=== PATIENT | female | born 2000 | race Caucasian/White ===

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

== ENCOUNTER 2022-01-04 15:15 | Emergency (ER) | payer MEDICAID, SELFPAY ==
[2022-01-04] VITALS (7 sets, daily range): BP systolic 110–121; BP diastolic 73–81; PULSE 63–89; RESP 15–18; TEMP 36.3; O2SAT 98–100; BMI 16.1
--- NOTE | 2022-01-04 16:01 | EX.ED.VIS.PS ---
HPI HPI - Psych History of Present Illness Chief Complaint: Suicidal Narrative Narrative: 20-year-old female presenting with suicidal ideation. He has a history of bipolar disorder. She is on Prozac 10 mg p.o. daily and states she ingested hydralzine which is prescribed by her primary physician. She states she cannot remember her name. She states this is a recurring prescription and she gets it every 30 days. She estimates she refilled this about 2 weeks ago and probably had about 15 pills of this prior to coming. She expresses that she had nausea and vomiting with retching and saw some blood tingeing in he saliva. She denies blood clots or coffee-ground emesis. She expresses that she has a mild epigastric pain as well. When I asked her what stressed her to this point she states I do not know, everything. She is very guarded with her answers. She states he did not ingest anything else. She is not on any blood thinners. PFSH PFS Medical History Anxiety Depression Eating disorder Home Medications NK 10/11/21 [History Last Taken Unknown] Allergy/AdvReac Type Severity Reaction Status Date / Time No Known Allergies Allergy Verified 01/04/22 15:16 Social History Smoking Status: Never smoker ROS ROS ED Constitutional Constitutional ED: Denies chills or fever(s) Eyes Eyes: Denies change in vision ENT ENT ED: Denies rhinorrhea or sore throat Cardiovascular Cardiovascular: Denies chest pain or palpitations Respiratory/Chest Respiratory/Chest: Denies cough or dyspnea Gastrointestinal Gastrointestinal: Reports abdominal pain, nausea, vomiting and other Details: Blood in saliva after vomiting. Genitourinary Genitourinary ED: Denies dysuria or hematuria Musculoskeletal Musculoskeletal: Denies arthralgias Integumentary Denies abscess or Abrasions Neurologic Neurologic: Denies headache(s) or paresthesias Psychiatric Psychiatric: Denies anxiety or depression EXAM Physical Exam Const Vital Signs: 01/04/22 15:16 01/04/22 17:43 01/04/22 18:38 Temperature 97.4 F L Temperature Source Temporal Pulse Rate 89 63 Respiratory Rate 16 18 18 Blood Pressure 121/81 H 110/73 Blood Pressure Mean 94 85 Pulse Ox 98 100 Oxygen Delivery Method Room Air Room Air Room Air Positive well nourished General Appearance ED: irritable and NAD; Negative for pallor HEENT Reports moist mucous membranes normocephalic and atraumatic Eyes PERRL and EOMs intact bilaterally General Eye ED: Negative for pale conjunctiva or scleral icterus Neck no lymphadenopathy Resp normal respiratory effort and clear to auscultation bilaterally GI non-distended and no masses Auscultation: normoactive bowel sounds Palpation: soft Back/Spine no CVA tenderness Neuro oriented x3 and CN's II-XII intact bilaterally Psych Appearance: grossly normal Attitude: calm and guarded Mood & Affect: irritable and flat affect Thought Content: suicidality, No homicidality and No hallucination(s) Attention / Concentration: attention grossly intact Memory / Cognition: memory grossly intact Insight: poor Judgement: poor Skin General Skin Exam: Negative for jaundice or pallor Lesions: no lesions MDM MDM MDM Narrative Medical decision making narrative: Patient states she ingested hydralazine which she is prescribed for anxiety. I suspect this is hydralazine. While attempting to find her medication list on [facility] it appears that she was recently seen for supervision of first trimester . The patient does not admit this to me. After admitting that she ingested the medication to hurt herself/kill herself I did developmental training counselor her that she will need to speak with the social media assistant and I would have to she is speak to poison control. She denies coingestions. Her physical exam is unremarkable. Suicide precautions in place. recycle worker contacted to see her. It was unable to be confirmed if she took hydroxyzine or not. Patient did tell the social media assistant that she did feel suicidal and did take a medication to hurt herself. At this point the patient will be pink slipped. CBC shows a normal white blood cell count at 16.2. Hemoglobin stable at 15.4. Platelets normal at 281. Serum hCG negative. EtOH less than 3. Urine drug screen negative. Renal function and electrolytes are normal. Salicylates within normal limits. Acetaminophen level is 54.5. Patient admits to ingestion at 2 PM and this is 2 hours and 35 minutes later. She does report vomiting but did not vomit any medicine. I spoke to poison control regarding this and they recommended redraw now. If her serum acetaminophen level is greater than 116 then she will need to be admitted for N-acetylcysteine treatment. If it is less she can be medically cleared. Repeat acetaminophen level was 34 therefore she is medically cleared. Patient was accepted to [facility]. She will be transported when a bed is available and transport arrives. Impression: 1. Nausea/vomiting 2. Suicidal ideation 3. Drug ingestion 4. Elevated acetaminophen level without overdose Lab Data Labs: Laboratory Results - last 24 hr 01/04/22 01/04/22 01/04/22 16:35 16:35 16:35 WBC 6.2 RBC 5.36 Hgb 15.4 H Hct 45.1 MCV 84.1 MCH 28.7 MCHC 34.1 RDW Std Deviation 39.2 RDW Coeff of Cely 12.8 Plt Count 281 MPV 10.6 Immature Gran % (Auto) 0.200 Neut % (Auto) 53.8 Lymph % (Auto) 35.7 [place] % (Auto) 8.1 Eos % (Auto) 1.1 Baso % (Auto) 1.1 H Absolute Neuts (auto) 3.3 Absolute Lymphs (auto) 2.20 Nucleated RBC % 0 Sodium Potassium Chloride Carbon Dioxide Anion Gap BUN Creatinine Estim Creat Clear Calc Est GFR (MDRD) Af Amer Est GFR (MDRD) Non-Af BUN/Creatinine Ratio Glucose Calcium Total Bilirubin AST ALT Alkaline Phosphatase Total Protein Albumin Globulin Albumin/Globulin Ratio Serum , Qual NEGATIVE Salicylates Urine Opiates Screen Urine Methadone Screen Acetaminophen Ur Barbiturates Screen Ur Phencyclidine Scrn Ur Amphetamines Screen MDMA (Ecstasy) Screen U Benzodiazepines Scrn Urine Cocaine Screen U Cannabinoids Screen Ur Drug Screen Comment Ethyl Alcohol < 3.0 01/04/22 01/04/22 01/04/22 16:35 16:35 16:57 WBC RBC Hgb Hct MCV MCH MCHC RDW Std Deviation RDW Coeff of Cely Plt Count MPV Immature Gran % (Auto) Neut % (Auto) Lymph % (Auto) [place] % (Auto) Eos % (Auto) Baso % (Auto) Absolute Neuts (auto) Absolute Lymphs (auto) Nucleated RBC % Sodium 140 Potassium 3.5 Chloride 105 Carbon Dioxide 28.0 Anion Gap 7 BUN 7 Creatinine 0.85 Estim Creat Clear Calc 76.23 Est GFR (MDRD) Af Amer 111 Est GFR (MDRD) Non-Af 92 BUN/Creatinine Ratio 8.3 L Glucose 97 Calcium 10.1 Total Bilirubin 0.60 AST 9 L ALT 17 Alkaline Phosphatase 78 Total Protein 8.9 H Albumin 4.9 Globulin 4.0 Albumin/Globulin Ratio 1.2 Serum , Qual Salicylates < 1.7 L Urine Opiates Screen NEGATIVE Urine Methadone Screen NEGATIVE Acetaminophen 54.5 H* Ur Barbiturates Screen NEGATIVE Ur Phencyclidine Scrn NEGATIVE Ur Amphetamines Screen NEGATIVE MDMA (Ecstasy) Screen NEGATIVE U Benzodiazepines Scrn NEGATIVE Urine Cocaine Screen NEGATIVE U Cannabinoids Screen NEGATIVE Ur Drug Screen Comment Ethyl Alcohol 01/04/22 19:30 WBC RBC Hgb Hct MCV MCH MCHC RDW Std Deviation RDW Coeff of Cely Plt Count MPV Immature Gran % (Auto) Neut % (Auto) Lymph % (Auto) [place] % (Auto) Eos % (Auto) Baso % (Auto) Absolute Neuts (auto) Absolute Lymphs (auto) Nucleated RBC % Sodium Potassium Chloride Carbon Dioxide Anion Gap BUN Creatinine Estim Creat Clear Calc Est GFR (MDRD) Af Amer Est GFR (MDRD) Non-Af BUN/Creatinine Ratio Glucose Calcium Total Bilirubin AST ALT Alkaline Phosphatase Total Protein Albumin Globulin Albumin/Globulin Ratio Serum , Qual Salicylates Urine Opiates Screen Urine Methadone Screen Acetaminophen 34.0 H Ur Barbiturates Screen Ur Phencyclidine Scrn Ur Amphetamines Screen MDMA (Ecstasy) Screen U Benzodiazepines Scrn Urine Cocaine Screen U Cannabinoids Screen Ur Drug Screen Comment Ethyl Alcohol Discharge Plan Triage Chief Complaint: Suicidal ED Provider: Armin Gaspar Dx/Rx/DC Orders Prescriptions: No Action NK Primary Care Provider: Care Physician,No Primary Referrals: Care Physician,No Primary [Primary Care Provider] -
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
[2022-01-04 16:53] LABS: Absolute Neutrophil Count 3.3 X10^3/uL (2.0-7.7); Basophil# 0.07 X10^3/uL; Basophil% 1.1 % (0-1); Eosinophil# 0.07 X10^3/uL; Eosinophils% 1.1 % (0-5); Hematocrit 45.1 % (37-47); Hemoglobin 15.4 g/dL (12.0-15.0); Lymphocyte % 35.7 % (19-41); Mean Corp Hgb Conc 34.1 g/dL (32-36); Mean Corpuscular Hgb 28.7 pg (27.0-32.0); Mean Corpuscular Volume 84.1 fL (81-99); Mean Platelet Vol. 10.6 fl (6.2-12.0); Monocyte% 8.1 % (0-10); NRBC Flagged by Analyzer 0 % (0-5); Neutrophil # 3.32 X10^3/uL (2.7-7.7); Neutrophil % 53.8 % (47-70); Platelet Count 281 K/mm3 (150-450); RBC Distribution Width CV 12.8 % (11.6-14.6); RBC Distribution Width SD 39.2 fl (35.1-43.9); Red Blood Count 5.36 M/mm3 (4.2-5.4); White Blood Count 6.2 K/mm3 (4.4-11.0)
--- NOTE | 2022-01-04 17:08 | CM.ED ---
Miguel FALLON stated it was GRANDFATHER who voiced that patient had made SI statements. Grandmother had stated that father has multiple psych issues requiring multiple psych placements. [facility]
[2022-01-04 17:11] LABS: ALB/GLOB Ratio 1.2 RATIO (0.9-2.4); AST(SGOT) 9 U/L (15-37); Alanine Aminotransfer ALT/SGPT 17 U/L (13-56); Albumin, Serum 4.9 g/dL (3.2-5.0); Alkaline Phosphatase 78 U/L (45-117); Anion Gap 7 (5-15); BUN 7 mg/dL (7-18); BUN/Creat Ratio 8.3 RATIO (10-20); Calcium,Total 10.1 mg/dL (8.5-10.1); Chloride 105 mmol/L (98-107); Creatinine, Serum 0.85 mg/dL (0.55-1.02); EST Glomerular Filtration Rate 92 mL/min (>60); Est Glom Filt Rate - Afr Amer 111 mL/min (>60); Estimated Creatinine Clearance 76.23 ml/min; Glucose 97 mg/dL (74-106); Potassium 3.5 mmol/L (3.5-5.1); Protein, Total 8.9 g/dL (6.4-8.2); Sodium Level 140 mmol/L (136-145)
--- NOTE | 2022-01-04 17:18 | EKG12_ITS ---
Test Reason : [facility] Blood Pressure : / mmHG Vent. Rate : 074 BPM Atrial Rate : 074 BPM P-R Int : 146 ms QRS Dur : 082 ms QT Int : 364 ms P-R-T Axes : 069 100 051 degrees QTc Int : 404 ms Normal sinus rhythm with sinus arrhythmia Rightward axis Borderline ECG Confirmed by ROBER JANSEN, TERESA ([id number]), non linear editor MARY SILVA ([id number]) on 01/06/2022 9:28:02 AM Referred By: JOSE Confirmed By:TERESA RICHTER MD
[2022-01-04 17:20] LABS: Amphetamine Urine VISTA NEGATIVE (<1000 ng/mL); Barbiturate Urine VISTA NEGATIVE (< 200 ng/mL); Benzodiazepine Urine VISTA NEGATIVE (< 200 ng/mL); Cocaine Urine VISTA NEGATIVE (< 300 ng/mL); Ecstacy Urine VISTA NEGATIVE (< 500 ng/mL); Methadone Urine VISTA NEGATIVE (< 300 ng/mL); PCP Urine VISTA NEGATIVE (< 25 ng/mL); THC Urine VISTA NEGATIVE (< 50 ng/mL); Vista UDS pH Range 7
--- NOTE | 2022-01-04 17:36 | NURSING ---
NO OLD EKGS
--- NOTE | 2022-01-04 18:08 | NURSING ---
ACCEPTED AT [facility]
[2022-01-04 18:10] LABS: Alcohol, Blood (Medical)-Serum < 3.0 mg/dL
--- NOTE | 2022-01-04 18:28 | CM.ED ---
SW went into patient's room and spoke to patient. She said that she had thought about SI and taken the pills but then I threw them up. SW discussed the seriousness of the situation. Patient voiced concern about who is going to care for her dog and how her pills are being paid. SW attempted to problem solve however, patient is resistive and said I don't want to talk to you anymore. BILLY received call from Ryann at [facility]. Patient was accepted by MD [facility]. Rn to Rn is [phone]. Room number to be decided at admission. BILLY updated charge lpn, RN and MD that patient accepted at [facility]. bere Domínguez call report. BILLY updated patient about acceptance at [facility]. Patient inquired about clothes and SW indicated that the facility will provide her with whatever clothing she needs. Per Catrachita, ETA for patient is 3 hours. BILLY called Ryann at [facility] and advised that patient will leave at 9:30pm Plan: [facility]
[2022-01-04 18:59] LABS: Internal QC Validated? YES +Cl - CLEAR BKGD; Pregnancy, Serum, hCG Quali. NEGATIVE Negative
[2022-01-04 19:15] LABS: Acetaminophen (Tylenol) Level 54.5 ug/mL (10.0-30.0); Salicylate < 1.7 mg/dL (2.8-20.0)
--- NOTE | 2022-01-04 23:13 | ED.RN ---
This RN was sitting with patient, patient asked to go to [employer] machine to get a snack. This RN states that since patient has been on good behavior and since the transport has been delayed twice that this RN will walk with patient to the vending machine. Patient states her phone and is now unable to use her phone to pay. This RN and patient started walking back to room 4, as this RN badges the ED doors open patient runs behind this RN and out the main ED doors. HRO runs after patient, Juan MUJICA notified and are out looking for patient. Dr Gaspar notified. [facility] notified as well, they state if patient is not found by midnight that there will no longer be anyone to admit her at their facility tonight and patient would have to arrive after 0730 in the am. Heaven from [facility] also states it is ok to medicate patient before she departs our ED.
--- NOTE | 2022-01-04 23:44 | NURSING ---
I CALLED PHYSICIANS AT [phone] FOR RM 2 RIDE, AND THEY PUSHED ETA FOR THIS PATIENT AN EXTRA HR SO FROM 2129 TO 2229. I CALLED AT 2144 FOR UPDATED ETA. THEY WERE GETTING A PATIENT OFF THE FLOOR, THEN COMING FOR RM2 ,THEN RM 4. AROUND 2309 I CALLED BACK, TO GET UPDATED ETA FOR RM 4. THEY GAVE ME 20 MORE MINUTES.
--- NOTE | 2022-01-06 12:45 | CM.ED ---
Social Work Telephone call from Officer Flory. Officer Flory reports to have got in contact with patient. Patient was able to get appointment with local crisis team for assessment and connection with services. Officer Flory reports that patient is doing well. This social media marketer thanked Officer Flory for the follow up phone call/updated on patient status due to patient eloping from the ED. Erick NAVA, RAMANA
== END 2022-01-04 23:15 | disposition left against medical advice (07) ==
PROVIDERS: Emergency Provider Student in an Organized Health Care Education/Training Program; Visit Provider Student in an Organized Health Care Education/Training Program
DX: R11.2 Nausea with vomiting, unspecified (principal); F31.9 Bipolar disorder, unspecified; R45.851 Suicidal ideations
CPT/HCPCS: 80053; 80307; 80329; 82077; 84703; 85025; 87811; 93005; 99284; G0480

== ENCOUNTER 2022-06-26 23:06 | Emergency (ER) | payer MEDICAID, SELFPAY ==
[2022-06-26 23:07] VITALS: BP 126/74; PULSE 73; RESP 16; TEMP 36.3; O2SAT 100; BMI 20.9
--- NOTE | 2022-06-26 23:22 | RAD_ITS ---
INDICATION: injury -- ring finger EXAMINATION/TECHNIQUE: X-RAY - LEFT HAND XR Fingers Min 2 Views 3 VIEWS COMPARISON: 04/30/2014 FINDINGS: SOFT TISSUES: No soft tissue swelling or gas. No radiopaque foreign body. BONES/JOINTS: Curvilinear lucency through the radial aspect of the base of the fourth digit distal phalanx only seen on the AP view. Normal alignment. Preservation of the joint space.. No sclerotic or destructive changes observed. RAD/Finger(s) Min 2 Views IMPRESSION: Fourth digit distal phalanx lucency as above, suggestive of nondisplaced fracture. Electronically Signed: Edd Madrigal MD at 23:55 EDT ,
--- NOTE | 2022-06-26 23:23 | EX.ED.UPPERE ---
HPI History of Present Illness Chief Complaint: Upper Extremity Injury Informant: patient Narrative Narrative: [id number] female crush injury left ring finger yesterday in the car door. Did not get this evaluated yesterday. Working the day would bump her finger cause pain. No medications taken today. No allergies. No history of stomach ulcers or kidney injury. Reports crushed the same finger previously however was not broken. Prior similar symptoms: Yes PFSH PFSH Medical History Anxiety Depression Eating disorder Home Medications NK 10/11/21 [History Last Taken Unknown] Allergy/AdvReac Type Severity Reaction Status Date / Time No Known Allergies Allergy Verified 06/26/22 23:08 Social History Smoking Status: Never smoker ROS ROS ED Constitutional Constitutional ED: Denies chills, fever(s) or sweats Eyes Eyes: Denies change in vision ENT ENT ED: Denies dysphagia or sore throat Cardiovascular Cardiovascular: Denies chest pain, leg edema, palpitations or racing heartbeat Respiratory/Chest Respiratory/Chest: Denies cough, dyspnea or dyspnea on exertion Gastrointestinal Gastrointestinal: Denies abdominal pain, diarrhea, nausea or vomiting Genitourinary Genitourinary ED: Denies dysuria, hematuria or urinary frequency Musculoskeletal Musculoskeletal: Reports extremity pain and other Details: Left ring finger injury ; Denies back pain or neck pain Integumentary Denies rash or wounds Neurologic Neurologic: Denies headache(s), paresthesias or weakness EXAM Physical Exam Const Vital Signs: 06/26/22 23:07 Temperature 97.4 F L Temperature Source Temporal Pulse Rate 73 Respiratory Rate 16 Blood Pressure 126/74 H Blood Pressure Mean 91 Pulse Ox 100 Oxygen Delivery Method Room Air Positive well nourished and well developed General Appearance ED: well developed and NAD HEENT Reports moist mucous membranes normocephalic and atraumatic Eyes PERRL and EOMs intact bilaterally General Eye ED: Yes normal appearance of both eyes Neck no lymphadenopathy and supple General: Negative for tenderness Chest Wall Chest: Negative for tenderness Resp normal respiratory effort and normal air movement Effort and Inspection: symmetric chest movement; Negative for respiratory distress Cardio regular rate, regular rhythm and no murmurs Peripheral Pulses: pulses 2+ throughout GI normal to inspection, nondistended, normoactive bowel sounds and non-tender Palpation: Negative for guarding or rebound tenderness present Back/Spine no CVA tenderness and no thoracic nor lumbar tenderness Extremity Extremity Narrative: Left upper extremity: No hand tenderness, ring finger mild tenderness proximal phalanx, mild tenderness distal phalanx. Skin was intact no deformities. Able to flex and extend the PIP and DIP joint. No subungual hematoma. General Extremety ED: Yes tenderness; Negative for edema General Extremity: Negative for edema Neuro oriented x3 and no sensory deficits noted Sensorium / Orientation: awake and alert Skin no rashes or lesions noted and no wounds MDM MDM MDM Narrative Medical decision making narrative: Interventions / MDM: Differential diagnosis: Crush injury ring finger, finger fracture, contusion Diagnosis considered but do not suspect: N/A My EKG interpretation: N/A Imaging independently reviewed and interpreted by myself: 3 view x-ray left ring finger: nonDisplaced fracture distal proximal phalanx on the AP view also read by radiology. External documents reviewed: N/A Test considered but not ordered:N/A ED course: Patient ibuprofen, x-ray nondisplaced fracture distal phalanx. No subungual hematoma. AlumaFoam splint, she will follow-up with orthopedics, she will continue Tylenol ibuprofen as needed. All questions were answered. Re-evaluation: stable Disposition discussed with patient/family/significant other: Patient Case discussed with consulting clinician: N/A Discharge Plan Triage Chief Complaint: Upper Extremity Injury ED Provider: Paul Sanders Dx/Rx/DC Orders Clinical Impression: Finger fracture, left Instructions: ED Fracture, Finger, Closed Prescriptions: No Action NK Primary Care Provider: Oscar Triana Referrals: Patric Dickinson MD [Med Staff - Active Staff] - 3-5 Days Care Physician,No Primary [Non-Staff] - Activity Restrictions/Additional Instructions: Nondisplaced fracture distal phalanx of your left ring finger. Keep and maintain the splint. Follow-up with Dr. Dickinson. Tylenol or ibuprofen as needed. Disposition Disposition: Home, Self Care Discharge Date/Time: 06/27/22 00:25
[2022-06-26] MEDS: Ibuprofen 600 MG Tablet PO (23:35)
== END 2022-06-27 00:25 | disposition home or self-care (01) ==
PROVIDERS: Emergency Provider Emergency Medicine; PCP Pediatrics; Visit Provider Emergency Medicine
DX: S62.649A Nondisplaced fracture of proximal phalanx of unspecified finger, initial encounter for closed fracture (principal); W23.2XXA Caught, crushed, jammed or pinched between a moving and stationary object, initial encounter
CPT/HCPCS: 73140; 99283

== ENCOUNTER 2022-11-16 13:51 | Emergency (ER) | payer SELFPAY ==
[2022-11-16 13:52] VITALS: BP 122/82; PULSE 99; RESP 16; TEMP 36.6; O2SAT 100; BMI 15.6
--- NOTE | 2022-11-16 14:12 | CT_ITS ---
STUDY: CT BRAIN WITHOUT CONTRAST REASON FOR EXAM: Female, 22 years old. Headache, vomiting, head injury RADIATION DOSAGE (If Supplied By Facility): CTDIvol = ( 44.99 ) mGy, DLP = ( 779.24 ) mGycm TECHNIQUE: Transaxial CT imaging of the brain was performed without administration of intravenous contrast material. Individualized dose optimization techniques were used for this CT. COMPARISON: No relevant priors. FINDINGS: Normal soft tissue structures. Normal calvarium. Normal size ventricles and extra-axial spaces for the patient''s age. Normal white matter tracts of the cerebral hemispheres. Normal basal ganglia and thalami. Normal brainstem. Normal cerebellum. There is no intracranial hemorrhage. There are no findings of an acute ischemic infarction. Normal visualized paranasal sinuses. CT/Brain/Head without Contrast IMPRESSION: Normal unenhanced CT scan of the brain. Electronically Signed: Santi Arreola MD at 14:45 EDT ,
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
[2022-11-16] MEDS: 0.9% Normal Saline (1000mL) 1,000 ML 1000 ML IV (14:23)
[2022-11-16] MEDS: Ketorolac 15 MG/ML Vial IV (14:23)
[2022-11-16] MEDS: Ondansetron 4 MG/2 ML Vial IV (14:23)
--- NOTE | 2022-11-16 14:35 | RAD_ITS ---
STUDY: X-RAY - CERVICAL SPINE REASON FOR EXAM: Female, 22 years old. Neck pain following injury. TECHNIQUE: 3 view(s) of the cervical spine were obtained. COMPARISON: None FINDINGS: Normal anterior atlantoaxial articulation. Normal odontoid process. There is straightening of the normal cervical lordosis. Normal vertebral bodies and endplates. Normal disc space heights. Normal visualized intervertebral neuroforamina. The soft tissue structures are unremarkable. RAD/Cerv Spine 2 or 3 Views IMPRESSION: Loss of the normal cervical lordosis. Electronically Signed: Santi Arreola MD at 14:51 EDT ,
[2022-11-16 15:28] VITALS: RESP 16
== END 2022-11-16 15:29 | disposition home or self-care (01) ==
PROVIDERS: Emergency Provider Emergency Medicine; PCP Pediatrics; Visit Provider Emergency Medicine
DX: S06.0X0A Concussion without loss of consciousness, initial encounter (principal); Y04.8XXA Assault by other bodily force, initial encounter; R06.00 Dyspnea, unspecified
CPT/HCPCS: 70450; 72040; 96361; 96374; 96375; 99283; J7030; A4216; J2405

== ENCOUNTER 2024-02-16 21:32 | Emergency (ER) | payer OTHER, SELFPAY ==
[2024-02-16 21:33] VITALS: BP 133/90; PULSE 100; RESP 18; TEMP 36.8; O2SAT 99; BMI 25.3
--- NOTE | 2024-02-16 21:43 | RAD_ITS ---
STUDY: X-RAY - RIGHT HAND REASON FOR EXAM: Female, 23 years old. injury TECHNIQUE: 3 view(s) of the hand. COMPARISON: None. FINDINGS: Normal radiocarpal articulation. Normal distal radioulnar joint. Normal visualized carpal bones. Normal carpal articulations Normal carpometacarpal articulation of the thumb. Normal second through fifth carpometacarpal joints. Normal metacarpi. Normal metacarpophalangeal joint of the thumb. Normal interphalangeal joint of the thumb. Normal proximal and distal phalanges of the thumb. Normal metacarpophalangeal joints of the second through fifth fingers. Normal proximal and distal interphalangeal joints of the second through fifth fingers. Normal phalanges of the second through fifth fingers. The soft tissue structures are unremarkable. RAD/Hand Min 3 Views IMPRESSION: Normal x-ray examination of the hand. Electronically Signed: Eliu Tomlinson MD at 22:41 EST ,
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
[2024-02-16 22:50] VITALS: BP 118/75; PULSE 72; RESP 16; TEMP 36.9; O2SAT 98
== END 2024-02-16 22:50 | disposition home or self-care (01) ==
PROVIDERS: Emergency Provider Emergency Medicine; PCP Pediatrics; Visit Provider Emergency Medicine
DX: S63.614A Unspecified sprain of right ring finger, initial encounter (principal); Y04.8XXA Assault by other bodily force, initial encounter; Y92.119 Unspecified place in children's home and orphanage as the place of occurrence of the external cause; Y99.0 Civilian activity done for income or pay; J45.909 Unspecified asthma, uncomplicated
CPT/HCPCS: 73130; 99282

== ENCOUNTER 2024-04-15 15:31 | Emergency (ER) | payer SELFPAY ==
[2024-04-15 15:32] VITALS: BP 129/90; PULSE 92; RESP 20; TEMP 36.4; O2SAT 99; BMI 24.5
--- NOTE | 2024-04-15 15:35 | CT_ITS ---
PROCEDURE: SOFT TISSUE NECK WITH CONTR REASON FOR EXAM: Trauma TECHNIQUE: CT of the soft tissues of the neck from the orbits to the upper mediastinum with intravenous contrast. COMPARISON: None. FINDINGS: Airway: Midline and patent. Pharyngeal mucosal space: Unremarkable. Hypopharynx and larynx: Unremarkable. Parapharyngeal and retropharyngeal spaces: Unremarkable. Frame Carver Spindle and buccal spaces: Unremarkable. Salivary glands: Unremarkable. Lymph nodes: No cervical lymphadenopathy. Thyroid: Unremarkable. Vasculature: Carotid arteries and internal jugular veins are unremarkable. Orbits: Unremarkable at visualized levels. Paranasal sinuses and mastoids: Grossly clear at visualized levels. Lung apices: Clear. Upper mediastinum: Visualized mediastinum is unremarkable. Bones: Unremarkable. CT/Soft Tissue Neck without Contr IMPRESSION: No acute CT process. One or more dose reduction techniques were used (e.g., Automated exposure contr ol, adjustment of the mA and/or kV according to patient size, use of iterative reconstruction technique). Reading Location[facility]
--- NOTE | 2024-04-15 15:35 | CT_ITS ---
EXAM: BRAIN/HEAD WITHOUT CONTRAST CLINICAL HISTORY: Trauma COMPARISON: None. TECHNIQUE: Noncontrast images of the head with multiplanar reconstructions. Dose reduction techniques were used including intermediate exposure control (AEC),iterative reconstruction technique, and/or mA and/or KV dose adjustments based on patient's size. FINDINGS: CT HEAD FINDINGS: No acute intracranial hemorrhage, mass, mass effect, midline shift or pathologic extra-axial fluid collection. No hydrocephalus. Age- appropriate cerebral volume and white matter. Visualized paranasal sinuses and mastoid air cells are clear. The calvarium is grossly intact. CT/Brain/Head without Contrast IMPRESSION: No CT evidence of acute intracranial pathology. Reading Location: [facility]
--- NOTE | 2024-04-15 15:37 | ED.RN ---
PER DR. MARTINES, NO C-COLLAR THIS TIME. CT HEAD AND NECK ORDERED
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
[2024-04-15] MEDS: Ondansetron ODT 4 MG Tablet PO (16:26)
[2024-04-15] MEDS: Acetaminophen 325 MG Tablet 650 MG PO (16:26)
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
[2024-04-15 16:51] VITALS: BP 108/62; PULSE 62; RESP 16; TEMP 36.4; O2SAT 99
== END 2024-04-15 17:00 | disposition home or self-care (01) ==
LOC: ED 16:58
PROVIDERS: Emergency Provider Emergency Medicine; PCP Pediatrics; Visit Provider Emergency Medicine
DX: S06.0X1A Concussion with loss of consciousness of 30 minutes or less, initial encounter (principal); R40.2412 Glasgow coma scale score 13-15, at arrival to emergency department; S10.91XA Abrasion of unspecified part of neck, initial encounter; T71.193A Asphyxiation due to mechanical threat to breathing due to other causes, assault, initial encounter; Y04.8XXA Assault by other bodily force, initial encounter; R13.10 Dysphagia, unspecified
CPT/HCPCS: 70450; 70490; 99283; Q9967

== ENCOUNTER 2024-06-08 15:03 | Emergency (ER) | payer SELFPAY ==
[2024-06-08 15:05] VITALS: BP 155/99; PULSE 79; RESP 18; TEMP 35.9; O2SAT 100; BMI 24.7
--- NOTE | 2024-06-08 16:09 | EKG12_ITS ---
Test Reason : MENTAL HEALTH Blood Pressure : */* mmHG Vent. Rate : 81 BPM Atrial Rate : 81 BPM P-R Int : 144 ms QRS Dur : 84 ms QT Int : 344 ms P-R-T Axes : 69 108 49 degrees QTcB Int : 399 ms Normal sinus rhythm with sinus arrhythmia Rightward axis Low voltage QRS Nonspecific T wave abnormality Abnormal ECG Confirmed by CANDIDO JANSEN, SHIRA ([id number]), society editor MARY SILVA ([id number]) on 06/11/2024 5:58:13 AM Referred By: Confirmed By: SHIRA REY MD
[2024-06-08 16:23] LABS: Absolute Lymphocyte Count 2.32 X10^3/uL (0.83-4.51); Absolute Neutrophil Count 4.4 X10^3/uL (2.0-7.7); Basophil# 0.05 X10^3/uL; Basophil% 0.7 % (0-1); Eosinophil# 0.08 X10^3/uL; Eosinophils% 1.1 % (0-5); Hematocrit 42.5 % (37-47); Hemoglobin 14.5 g/dL (12.0-15.0); Lymphocyte # 2.32 X10^3/ul (0.83-4.51); Lymphocyte % 31.6 % (19-41); Mean Corp Hgb Conc 34.1 g/dL (32-36); Mean Corpuscular Hgb 28.9 pg (27.0-32.0); Mean Corpuscular Volume 84.8 fL (81-99); Mean Platelet Vol. 10.7 fl (6.2-12.0); Monocyte# 0.46 X10^3/uL; Monocyte% 6.3 % (0-10); NRBC Flagged by Analyzer 0 % (0-5); Neutrophil # 4.42 X10^3/uL (2.7-7.7); Neutrophil % 60.2 % (47-70); Platelet Count 285 K/mm3 (150-450); RBC Distribution Width CV 13.4 % (11.6-14.6); RBC Distribution Width SD 41.5 fl (35.1-43.9); Red Blood Count 5.01 M/mm3 (4.2-5.4); White Blood Count 7.3 K/mm3 (4.4-11.0)
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
[2024-06-08 16:30] VITALS: BP 122/80; PULSE 77; O2SAT 100
[2024-06-08 16:47] LABS: Internal QC Validated? YES +Cl - CLEAR BKGD; Pregnancy, Serum, hCG Quali. NEGATIVE Negative
[2024-06-08 16:48] LABS: Alcohol, Blood (Medical)-Serum < 10.1 mg/dL (<=10.0)
[2024-06-08 16:49] LABS: ALB/GLOB Ratio 1.6 RATIO (0.9-2.4); AST(SGOT) 20 U/L (<=31); Alanine Aminotransfer ALT/SGPT 12 U/L (<=34); Albumin, Serum 4.8 g/dL (3.5-5.0); Alkaline Phosphatase 70 U/L (35-104); Anion Gap 13 (5-15); BUN 9 mg/dL (4-19); BUN/Creat Ratio 11.8 RATIO (10-20); Calcium,Total 9.8 mg/dL (7.6-11.0); Carbon Dioxide 23.2 mmol/L (21.0-32.0); Chloride 103 mmol/L (98-108); Creatinine, Serum 0.78 mg/dL (0.70-1.20); EST Glomerular Filtration Rate 111 (>60); Estimated Creatinine Clearance 102.66 ml/min (50-250); Globulin 3.1 g/dL (2.2-4.2); Glucose 111 mg/dL (70-99); Potassium 3.9 mmol/L (3.3-5.1); Protein, Total 7.8 g/dL (5.9-8.4); Sodium Level 139 mmol/L (133-145); Total Bilirubin 0.34 mg/dL (0.00-1.30)
[2024-06-08 16:59] VITALS: BP 122/80; PULSE 84; O2SAT 100
[2024-06-08 17:03] LABS: Acetaminophen (Tylenol) Level < 5.0 ug/mL (8.0-19.0); Salicylate < 0.5 mg/dL (2.8-20.0)
[2024-06-08 17:21] LABS: Amphetamine Urine NEGATIVE (<1000 ng/mL); Barbiturate Urine NEGATIVE (< 200 ng/mL); Benzodiazepine Urine NEGATIVE (< 200 ng/mL); Buprenorphine Urine NEGATIVE (< 200 ng/mL); Cocaine Urine NEGATIVE (< 300 ng/mL); Fentanyl, Urine NEGATIVE; Methadone Urine NEGATIVE (< 300 ng/mL); Opiates Urine NEGATIVE (< 300 ng/mL); Oxycodone, Urine NEGATIVE (< 100 ng/mL); PCP Urine NEGATIVE (< 25 ng/mL); THC Urine NEGATIVE (< 50 ng/mL)
[2024-06-08 17:49] LABS: Bacteria 0 SEEN /hpf (None Seen); Mucous, Urine 0 SEEN /hpf (<or=2+); Red Blood Cells-Urine 0 SEEN /hpf (0-5)
[2024-06-08 17:53] LABS: Color, Urine Yellow (Yellow); Glucose, Dipstick Normal (Normal); Ketone-Dipstick Negative (Negative); Leukocyte Esterase-Dipstick 25 /ul (Negative); Nitrite-Dipstick Negative (Negative); Occult Blood-Urine Negative /ul (Negative); Protein-Dipstick 15 mg/dl (Negative); Urine Bilirubin Dipstick Negative (Negative); Urine Clarity Sl. Cloudy (Clear); Urine Urobilinogen Normal (Normal)
[2024-06-08 18:00] VITALS: BP 123/76; PULSE 72; RESP 14; O2SAT 98
[2024-06-08 18:03] LABS: Amorphous Sediment 1+ PHOS; Squamous Epithelial Cells - UA 0-5 SEEN /hpf (5-10); White Blood Cells 0-5 SEEN /hpf (0-5)
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
--- NOTE | 2024-06-08 19:24 | CM.ED ---
Social Work Patient believed that she had [facility] insurance, however was inactive when ran by registration. SW contacted Crisis and faxed paperwork over to assist in placement. Crisis requested proof of no insurance and pink slip. Both faxed. Kylah Mcgee, MEDICAL OFFICE CLERK, SELF PROPELLED HOT MIX ROLLER OPERATOR
--- NOTE | 2024-06-08 21:08 | PCA ---
Addendum entered by Love Lopez 06/08/24 21:24: [facility]ED [facility] MARGUERITE VARGAS ABMegan [address]: [phone] OPT 1 INTAKE PINK SLIP W/[facility] Original Note: PENDING [facility] PLACEMENT
--- NOTE | 2024-06-08 21:34 | CM.ED ---
Social Work Patient notified that she was accepted at [facility]. No further questions or concerns noted. Kylah Mcgee, SUPERVISOR DIALS, PRODUCT SAFETY MANAGER
[2024-06-08 22:10] VITALS: BP 121/64; PULSE 71; RESP 15; TEMP 35.9; O2SAT 99
== END 2024-06-08 23:07 ==
PROVIDERS: Emergency Provider Emergency Medicine; PCP Pediatrics; Visit Provider Emergency Medicine
DX: F39 Unspecified mood [affective] disorder (principal); X78.9XXA Intentional self-harm by unspecified sharp object, initial encounter; S50.811A Abrasion of right forearm, initial encounter; S50.812A Abrasion of left forearm, initial encounter; S70.311A Abrasion, right thigh, initial encounter; S70.312A Abrasion, left thigh, initial encounter; R11.0 Nausea; R10.30 Lower abdominal pain, unspecified; J45.909 Unspecified asthma, uncomplicated; F17.290 Nicotine dependence, other tobacco product, uncomplicated
CPT/HCPCS: 80053; 80143; 80179; 80307; 81001; 82077; 84703; 85025; 93005; 99284

== ENCOUNTER 2024-10-01 12:33 | Emergency (ER) | payer SELFPAY ==
[2024-10-01 12:33] VITALS: BP 127/88; PULSE 73; RESP 18; TEMP 36.6; O2SAT 99; BMI 29.9
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
--- NOTE | 2024-10-01 14:01 | CT_ITS ---
PROCEDURE: SPINE CERVICAL WITHOUT CONTRAS 10/01/2024 REASON FOR EXAM: INJURY/PAIN TECHNIQUE: SPINE CERVICAL WITHOUT CONTRAS Coronal and Sagittal reconstruction series were provided. One or more dose reduction techniques were used (e.g., Automated exposure control, adjustment of the mA and/or kV according to patient size, use of iterative reconstruction technique. RADIATION DOSE SUMMARY: CTDlvol: 23.2 mGy DLP: 1156.1 mGycm COMPARISON: None FINDINGS: Alignment: Straightening of the normal cervical lordosis. Vertebrae: Vertebral heights are well-maintained. No evidence of compression fracture. Soft Tissues: Unremarkable Other: C1-2: Unremarkable C2-3: Unremarkable C3-4: Unremarkable C4-5: Unremarkable C5-6: Unremarkable C6-7: Unremarkable C7-T1: Unremarkable CT/Spine Cervical without Contras IMPRESSION: Loss of the normal cervical lordosis. No other abnormality is seen. Reading Location: [id number]
--- NOTE | 2024-10-01 14:01 | CT_ITS ---
PROCEDURE: BRAIN/HEAD WITHOUT CONTRAST 10/01/2024 REASON FOR EXAM: INJURY/PAIN TECHNIQUE: BRAIN/HEAD WITHOUT CONTRAST Coronal and Sagittal reconstruction series were provided. One or more dose reduction techniques were used (e.g., Automated exposure control, adjustment of the mA and/or kV according to patient size, use of iterative reconstruction technique. RADIATION DOSE SUMMARY: CTDlvol: 63.21 mGy DLP: 1156.10 mGycm COMPARISON: Head CT of 04/15/2024. FINDINGS: Brain: Normal CSF Spaces: Normal Sinuses/Mastoids: Clear at visualized levels Bones: No fracture is seen. CT/Brain/Head without Contrast IMPRESSION: NORMAL NONCONTRAST HEAD CT. Reading Location: [place] [id number]
[2024-10-01 14:33] VITALS: BP 147/106; PULSE 86; RESP 18; O2SAT 100
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
[2024-10-01 16:00] VITALS: BP 125/74; PULSE 69; RESP 18; TEMP 36.2; O2SAT 100
== END 2024-10-01 16:06 | disposition home or self-care (01) ==
PROVIDERS: Emergency Provider Emergency Medicine; Visit Provider Emergency Medicine
DX: S09.90XA Unspecified injury of head, initial encounter (principal); V49.50XA Passenger injured in collision with unspecified motor vehicles in traffic accident, initial encounter; F17.290 Nicotine dependence, other tobacco product, uncomplicated; S16.1XXA Strain of muscle, fascia and tendon at neck level, initial encounter
CPT/HCPCS: 70450; 72125; 99282